=== PATIENT | female | born 1945 | race Caucasian/White ===

== ENCOUNTER 2016-06-07 11:01 | Inpatient (IN) | payer MEDICARE, MEDICAID ==
--- NOTE | 2016-06-07 11:14 | EDM.PDOC ---
<Brionna Sal - Last Filed: 06/07/16 12:10> ED HISTORY OF PRESENT ILLNESS - General Chief Complaint: Respiratory Problem Stated Complaint: FROM CLINIC: COUGH, FEVER, SORE THROAT, SHORTNESS OF BREATH Time Seen by Provider: 06/07/16 11:10 - History of Present Illness INITIAL COMMENTS - FREE TEXT/NARRATIVE: Patient presents to the ER from the clinic after seeing Dr. Waite. She states she has had a cough for about a week, producing white/yellow mucous. She states she has felt fatigued, tired, body aches for the past 3 days. She states she is a former smoker. Denies chest pain, N/V/D. She states she does not have a thermometer at home and is unaware if she has had a fever. - Related Data Allergies/ADRs: Allergies Allergy/AdvReac Type Severity Reaction Status Date / Time codeine Allergy Headache Verified 06/07/16 11:25 Penicillins Allergy Other Verified 08/20/14 14:44 Home Meds: Home Meds Alendronate [Fosamax] 70 mg PO Q7D@0600 08/20/14 [History] Furosemide [Furosemide] 20 mg PO DAILY 08/20/14 [History] Metoprolol Tartrate 25 mg PO DAILY 08/20/14 [History] Sertraline HCl 25 mg PO DAILY 08/20/14 [History] Simvastatin [Simvastatin] 20 mg PO DAILY 08/20/14 [History] Albuterol [Proventil HFA] 108 gm INH BID 06/07/16 [History] Aspirin [Halfprin] 81 mg PO BRK 06/07/16 [History] Magnesium 200 mg PO TID 06/07/16 [History] Pantoprazole [Protonix] 40 mg PO DAILY 06/07/16 [History] atorvaSTATin [Lipitor] 20 mg PO DAILY 06/07/16 [History] ED ROS GENERAL - Review of Systems Review Of Systems: ROS reveals no pertinent complaints other than HPI. ED EXAM, GENERAL - Physical Exam Exam: See Below Exam Limited By: No limitations General Appearance: alert, WD/WN, no apparent distress Eye Exam: bilateral eye: normal inspection Ears: normal external exam, normal canal, hearing grossly normal, normal TMs Ear Exam: bilateral ear: auricle normal, canal normal, TM normal Nose: normal inspection, normal mucosa, no blood Throat/Mouth: Normal inspection, Normal lips, Normal teeth, Normal gums, Normal oropharynx, Normal voice, No airway compromise Head: atraumatic, normocephalic Neck: normal inspection, supple, non-tender, full range of motion Respiratory/Chest: no respiratory distress, lungs clear, normal breath sounds, no accessory muscle use, chest non-tender, decreased breath sounds Cardiovascular: normal peripheral pulses, regular rate, rhythm, no gallop, no murmur, no rub Peripheral Pulses: 2+: radial (L), radial (R) GI/Abdominal: normal bowel sounds, soft, non tender, no organomegaly, no distention, no abnormal bruit, no mass (Female) Exam: Deferred Rectal (Female) Exam: Deferred Back Exam: normal inspection, full range of motion, NT Extremities: normal inspection, normal range of motion, non-tender, normal capillary refill, no pedal edema Neurological: alert, oriented, CN II-XII intact, normal cognition, normal gait, normal reflexes, no motor/sensory deficits Psychiatric: normal affect, normal mood Skin Exam: Warm, Dry, Intact, Normal color, No rash Lymphatic: no adenopathy Course - Vital Signs Last Recorded V/S: Last Vital Signs Temp 36.6 C 06/07/16 11:17 Pulse 78 06/07/16 11:17 Resp 18 06/07/16 11:17 BP 98/56 L 06/07/16 11:17 Pulse Ox 87 L 06/07/16 11:17 - Orders/Labs/Meds Orders: Active Orders 24 hr Category Date Time Status Overnight Pulse Oximetry [RC] Click To Edit Care 06/07/16 11:15 Active Peripheral IV Care [RC] . DIRECTED Care 06/07/16 11:15 Active RT Aerosol Therapy [RC] ASDIRECTED Care 06/07/16 11:15 Active CULTURE BLOOD [BC] Stat Lab 06/07/16 11:30 Received CULTURE BLOOD [BC] Stat Lab 06/07/16 11:35 Received CULTURE STREP A CONFIRMATION [] Stat Lab 06/07/16 11:25 Results STREP SCRN A RAPID W CULT CONF [] Stat Lab 06/07/16 11:25 Results UA W/MICROSCOPIC [URIN] Stat Lab 06/07/16 11:14 Uncollected Sodium Chloride 0.9% [Saline Flush] Med 06/07/16 11:14 Active 10 ml FLUSH ASDIRECTED PRN Blood Culture x2 Reflex Set [OM.PC] Stat Ot 06/07/16 11:14 Ordered Peripheral IV Insertion Adult [OM.PC] Stat Ot 06/07/16 11:14 Ordered Pulse Oximetry Continuous Monitoring [OM.PC] Routine Ot 06/07/16 11:14 Ordered RT Supplemental Oxygen Titration [RESPCARE] Stat Ot 06/07/16 11:14 Active Medication Orders Sodium Chloride (Saline Flush) 10 ml FLUSH ASDIRECTED PRN PRN Reason: Keep Vein Open Last Admin: 06/07/16 11:45 Dose: 10 ml Labs: Laboratory Tests 06/07/16 06/07/16 06/07/16 Range/Units 11:30 11:30 11:30 WBC 5.8 (5.0-10.0) 10^3/uL RBC 5.04 (4.2-5.4) 10^6/uL Hgb 14.2 (12.0-16.0) g/dL Hct 45.2 (37.0-47.0) % MCV 89.7 (80-100) fL MCH 28.2 (27.0-34.0) pg MCHC 31.4 L (33.0-35.0) g/dL Plt Count 174 (150-450) 10^3/uL Neut % (Auto) 59.4 (42.2-75.2) % Lymph % (Auto) 29.8 (20.5-50.1) % [place] % (Auto) 9.6 H (2-8) % Eos % (Auto) 0.9 L (1.0-3.0) % Baso % (Auto) 0.3 (0.0-1.0) % Sodium 138 (135-145) mmol/L Potassium 4.1 (3.6-5.0) mmol/L Chloride 99 L (101-111) mmol/L Carbon Dioxide 29.0 (21.0-31.0) mmol/L Anion Gap 14.1 BUN 21 H (7-18) mg/dL Creatinine 0.9 (0.6-1.3) mg/dL Est Cr Clr Drug Dosing 43.89 mL/min Estimated GFR (MDRD) > 60 BUN/Creatinine Ratio 23.33 Glucose 129 H (74-105) mg/dL Lactic Acid 1.1 (0.5-2.2) mmol/L Calcium 7.9 L (8.4-10.2) mg/dl Total Bilirubin 0.7 (0.2-1.0) mg/dL AST 37 (10-42) IU/L ALT 24 (10-60) IU/L Alkaline Phosphatase 82 (42-121) IU/L Total Protein 7.4 (6.7-8.2) g/dl Albumin 4.0 (3.2-5.5) g/dl Globulin 3.4 Albumin/Globulin Ratio 1.18 Rapid Influenza A & B: NEGATIVE Rapid Strep: NEGATIVE Meds: Medications Generic Name Dose Route Start Last Admin Trade Name Freq PRN Reason Stop Dose Admin Sodium Chloride 10 ml 06/07/16 11:14 06/07/16 11:45 Saline Flush FLUSH 10 ml ASDIRECTED PRN Administration Keep Vein Open Discontinued Medications Generic Name Dose Route Start Last Admin Trade Name Freq PRN Reason Stop Dose Admin Albuterol/Ipratropium 3 ml 06/07/16 11:15 06/07/16 11:43 Duoneb 3.0-0.5 Mg/3 Ml NEB 06/07/16 11:16 3 ml ONETIME ONE Administration Methylprednisolone Sodium Succinate 125 mg 06/07/16 11:15 06/07/16 11:49 Solu-Medrol IVPUSH 06/07/16 11:16 125 mg ONETIME ONE Administration Departure - Departure Disposition: Admitted As Inpatient 66 Clinical Impression: Acute exacerbation of chronic obstructive pulmonary disease (COPD), Hypoxia Forms: ED Department Discharge - My Orders Last 24 Hours: My Active Orders 06/07/16 11:14 UA W/MICROSCOPIC [URIN] Stat Sodium Chloride 0.9% [Saline Flush] 10 ml FLUSH ASDIRECTED PRN Blood Culture x2 Reflex Set [OM.PC] Stat Peripheral IV Insertion Adult [OM.PC] Stat Pulse Oximetry Continuous Monitoring [OM.PC] Routine RT Supplemental Oxygen Titration [RESPCARE] Stat 06/07/16 11:15 Overnight Pulse Oximetry [RC] Click To Edit Peripheral IV Care [RC] . DIRECTED RT Aerosol Therapy [RC] ASDIRECTED 06/07/16 11:25 CULTURE STREP A CONFIRMATION [RM] Stat STREP SCRN A RAPID W CULT CONF [RM] Stat 06/07/16 11:30 CULTURE BLOOD [BC] Stat 06/07/16 11:35 CULTURE BLOOD [BC] Stat - Assessment/Plan Last 24 Hours: My Active Orders 06/07/16 11:14 UA W/MICROSCOPIC [URIN] Stat Sodium Chloride 0.9% [Saline Flush] 10 ml FLUSH ASDIRECTED PRN Blood Culture x2 Reflex Set [OM.PC] Stat Peripheral IV Insertion Adult [OM.PC] Stat Pulse Oximetry Continuous Monitoring [OM.PC] Routine RT Supplemental Oxygen Titration [RESPCARE] Stat 06/07/16 11:15 Overnight Pulse Oximetry [RC] Click To Edit Peripheral IV Care [RC] . DIRECTED RT Aerosol Therapy [RC] ASDIRECTED 06/07/16 11:25 CULTURE STREP A CONFIRMATION [RM] Stat STREP SCRN A RAPID W CULT CONF [RM] Stat 06/07/16 11:30 CULTURE BLOOD [BC] Stat 06/07/16 11:35 CULTURE BLOOD [BC] Stat <Luis Manuel Reyes - Last Filed: 06/07/16 12:38> ED HISTORY OF PRESENT ILLNESS - General Source of Information: Reports: Patient, Old records, Provider (Dr. Waite), RN, RN notes reviewed History Limitations: Reports: No limitations - History of Present Illness Timing/Duration: Reports: Constant, Getting worse Location, General: Reports: chest, other (throat) Quality: Reports: Ache, Burning Improves with: Reports: None Worsens with: Reports: None Context, General: Denies: Activity, Exercise, Lifting, Sick contact, Trauma Associated Symptoms (General): Reports: no other symptoms Treatments TEST DRIVER: Reports: Breathing treatments, Oxygen Past Medical History Cardiovascular History: Reports: High cholesterol, Hypertension Respiratory History: Reports: Asthma, COPD, SOB Musculoskeletal History: Reports: Osteoporosis Other Neuro History: states she has brain anurysm Psychiatric History: Reports: Addiction (alcohol), Depression Social & Family History - Family History Family Medical History: Noncontributory - Tobacco Use Smoking Status *Q: Current Every Day Smoker Tobacco Use Within Last Twelve Months: Cigarettes Years of Tobacco use: 50 - Alcohol Use Days Per Week of Alcohol Use: 5 Number of Drinks Per Day: 4 Total Drinks Per Week: 20 - Recreational Drug Use Recreational Drug Use: No - Living Situation & Occupation Living situation: Reports: single, alone Occupation: retired ED ROS GENERAL - Review of Systems Review Of Systems: ROS reveals no pertinent complaints other than HPI. ED EXAM, GENERAL - Physical Exam Exam: See Below Exam Limited By: No limitations General Appearance: alert, no apparent distress Course - Vital Signs Last Recorded V/S: Last Vital Signs Temp 36.6 C 06/07/16 11:17 Pulse 78 06/07/16 11:17 Resp 18 06/07/16 11:17 BP 98/56 L 06/07/16 11:17 Pulse Ox 87 L 06/07/16 11:17 - Orders/Labs/Meds Orders: Active Orders 24 hr Category Date Time Status Overnight Pulse Oximetry [RC] Click To Edit Care 06/07/16 11:15 Active Peripheral IV Care [RC] . DIRECTED Care 06/07/16 11:15 Active RT Aerosol Therapy [RC] ASDIRECTED Care 06/07/16 11:15 Active CULTURE BLOOD [BC] Stat Lab 06/07/16 11:30 Received CULTURE BLOOD [BC] Stat Lab 06/07/16 11:35 Received CULTURE STREP A CONFIRMATION [RM] Stat Lab 06/07/16 11:25 Results STREP SCRN A RAPID W CULT CONF [RM] Stat Lab 06/07/16 11:25 Results UA W/MICROSCOPIC [URIN] Stat Lab 06/07/16 11:14 Uncollected Sodium Chloride 0.9% [Saline Flush] Med 06/07/16 11:14 Active 10 ml FLUSH ASDIRECTED PRN Blood Culture x2 Reflex Set [OM.PC] Stat Oth 06/07/16 11:14 Ordered Peripheral IV Insertion Adult [OM.PC] Stat Oth 06/07/16 11:14 Ordered Pulse Oximetry Continuous Monitoring [OM.PC] Routine Oth 06/07/16 11:14 Ordered RT Supplemental Oxygen Titration [RESPCARE] Stat Oth 06/07/16 11:14 Active Medication Orders Sodium Chloride (Saline Flush) 10 ml FLUSH ASDIRECTED PRN PRN Reason: Keep Vein Open Last Admin: 06/07/16 11:45 Dose: 10 ml Labs: Laboratory Tests 06/07/16 06/07/16 06/07/16 Range/Units 11:30 11:30 11:30 WBC 5.8 (5.0-10.0) 10^3/uL RBC 5.04 (4.2-5.4) 10^6/uL Hgb 14.2 (12.0-16.0) g/dL Hct 45.2 (37.0-47.0) % MCV 89.7 (80-100) fL MCH 28.2 (27.0-34.0) pg MCHC 31.4 L (33.0-35.0) g/dL Plt Count 174 (150-450) 10^3/uL Neut % (Auto) 59.4 (42.2-75.2) % Lymph % (Auto) 29.8 (20.5-50.1) % [place] % (Auto) 9.6 H (2-8) % Eos % (Auto) 0.9 L (1.0-3.0) % Baso % (Auto) 0.3 (0.0-1.0) % Sodium 138 (135-145) mmol/L Potassium 4.1 (3.6-5.0) mmol/L Chloride 99 L (101-111) mmol/L Carbon Dioxide 29.0 (21.0-31.0) mmol/L Anion Gap 14.1 BUN 21 H (7-18) mg/dL Creatinine 0.9 (0.6-1.3) mg/dL Est Cr Clr Drug Dosing 43.89 mL/min Estimated GFR (MDRD) > 60 BUN/Creatinine Ratio 23.33 Glucose 129 H (74-105) mg/dL Lactic Acid 1.1 (0.5-2.2) mmol/L Calcium 7.9 L (8.4-10.2) mg/dl Total Bilirubin 0.7 (0.2-1.0) mg/dL AST 37 (10-42) IU/L ALT 24 (10-60) IU/L Alkaline Phosphatase 82 (42-121) IU/L Total Protein 7.4 (6.7-8.2) g/dl Albumin 4.0 (3.2-5.5) g/dl Globulin 3.4 Albumin/Globulin Ratio 1.18 Meds: Medications Generic Name Dose Route Start Last Admin Trade Name Freq PRN Reason Stop Dose Admin Sodium Chloride 10 ml 06/07/16 11:14 06/07/16 11:45 Saline Flush FLUSH 10 ml ASDIRECTED PRN Administration Keep Vein Open Discontinued Medications Generic Name Dose Route Start Last Admin Trade Name Freq PRN Reason Stop Dose Admin Albuterol/Ipratropium 3 ml 06/07/16 11:15 06/07/16 11:43 Duoneb 3.0-0.5 Mg/3 Ml NEB 06/07/16 11:16 3 ml ONETIME ONE Administration Methylprednisolone Sodium Succinate 125 mg 06/07/16 11:15 06/07/16 11:49 Solu-Medrol IVPUSH 06/07/16 11:16 125 mg ONETIME ONE Administration - Radiology Interpretation Free Text/Narrative:: CXR: Chronic bronchitis, no lobar infiltrates or CHF per Rad. report. CT Results Date: 06/07/16 - Re-Assessments/Exams Free Text/Narrative Re-Assessment/Exam: 06/07/16 12:31 FOR THIS ENCOUNTER THE PATIENT WAS SEEN IN CONJUNCTION WITH [facility] STUDENT BRIONNA SAL. ALL PATIENT CARE AND/OR PROCEDURE(S), DIAGNOSTIC ORDERS, MEDICATION(S) AND TREATMENT ORDERS, DISPOSITION ORDERS/PLANNING, AND DISCHARGE/FOLLOW UP INSTRUCTIONS WERE UNDER MY DIRECT SUPERVISION. gbd Departure - Departure Time of Disposition: 12:33 (admit to Dr. Parrish) Condition: serious - My Orders Last 24 Hours: My Active Orders 06/07/16 11:14 UA W/MICROSCOPIC [URIN] Stat Sodium Chloride 0.9% [Saline Flush] 10 ml FLUSH ASDIRECTED PRN Blood Culture x2 Reflex Set [OM.PC] Stat Peripheral IV Insertion Adult [OM.PC] Stat Pulse Oximetry Continuous Monitoring [OM.PC] Routine RT Supplemental Oxygen Titration [RESPCARE] Stat 06/07/16 11:15 Overnight Pulse Oximetry [RC] Click To Edit Peripheral IV Care [RC] . DIRECTED RT Aerosol Therapy [RC] ASDIRECTED 06/07/16 11:25 CULTURE STREP A CONFIRMATION [RM] Stat STREP SCRN A RAPID W CULT CONF [RM] Stat 06/07/16 11:30 CULTURE BLOOD [BC] Stat 06/07/16 11:35 CULTURE BLOOD [BC] Stat - Assessment/Plan Last 24 Hours: My Active Orders 06/07/16 11:14 UA W/MICROSCOPIC [URIN] Stat Sodium Chloride 0.9% [Saline Flush] 10 ml FLUSH ASDIRECTED PRN Blood Culture x2 Reflex Set [OM.PC] Stat Peripheral IV Insertion Adult [OM.PC] Stat Pulse Oximetry Continuous Monitoring [OM.PC] Routine RT Supplemental Oxygen Titration [RESPCARE] Stat 06/07/16 11:15 Overnight Pulse Oximetry [RC] Click To Edit Peripheral IV Care [RC] . DIRECTED RT Aerosol Therapy [RC] ASDIRECTED 06/07/16 11:25 CULTURE STREP A CONFIRMATION [RM] Stat STREP SCRN A RAPID W CULT CONF [RM] Stat 06/07/16 11:30 CULTURE BLOOD [BC] Stat 06/07/16 11:35 CULTURE BLOOD [BC] Stat
[2016-06-07] MEDS ORDERED: methylPREDNISolone Sodium Succinate 125 MG/2 ML SDV IVPUSH ONE (11:15)
[2016-06-07] MEDS ORDERED: Albuterol/Ipratropium 3.0-0.5 MG/3 ML Neb Soln NEB ONE (11:15)
[2016-06-07] MEDS: Sodium Chloride 0.9% 10 ML Syringe FLUSH PRN ×2 (11:45→21:17)
[2016-06-07 12:02] LABS: CHLORIDE,CL 99 mmol/L (101-111); SODIUM,NA 138 mmol/L (135-145)
--- NOTE | 2016-06-07 12:10 | CR ---
Clinical history: 70-year-old female dyspnea and cough Interpretation: Hypertrophic marginal spondylosis dorsal spine. Course accentuation perihilar lung markings and old pleural pericardial scarring right base unchange d since 12 February 2012 exam. Normal cardiac silhouette without alveolar edema or dependent effusion and no new lung mass, hilar l ymphadenopathy or focal lobar pneumonia. CONCLUSION: Chronic bronchitis. No lobar pneumonia or signs of heart failure.
[2016-06-07] MEDS ORDERED: Ondansetron 4 MG Tab.DIS PO PRN (15:14)
[2016-06-07] MEDS ORDERED: Zolpidem 5 MG Tab PO PRN (15:14)
[2016-06-07] MEDS ORDERED: Magnesium Hydroxide 400 MG/5 ML Susp 30 ML Cup PO PRN (15:14)
[2016-06-07] MEDS ORDERED: Acetaminophen 325 MG Tab PO PRN (15:14)
[2016-06-07] MEDS ORDERED: Docusate Sodium 100 MG Cap PO PRN (15:14)
[2016-06-07] MEDS ORDERED: Aspirin 81 MG Tab.EC PO SCH (15:30)
[2016-06-07] MEDS: Levofloxacin/Dextrose 5%-Water 500 MG in Premix Bag 1 BAG IV SCH (15:51)
--- NOTE | 2016-06-07 16:00 | HP ---
CHIEF COMPLAINT: Increasing shortness of breath. HISTORY OF PRESENTING ILLNESS: Ms. Clint Toledo is a 70-year-old female with a medical history significant for hypertension, hyperlipidemia, chronic obstructive pulmonary airway disease, glucose intolerance, history of alcoholic cirrhosis in the past, history of tobacco use in the past but quit smoking many years back, presented to the clinic today with complaints of increasing shortness of breath and so was sent to the emergency room. While in the emergency room, the patient was noted to have possible bronchitis and possible COPD exacerbation, needing admission to the hospital. The patient says that the shortness of breath has been going on for the last one week, which has been progressively getting worse. She grades the shortness of breath as 5 to 6/10 in intensity, which got aggravated on exertion, ambulation, relieved with rest, associated with chest pain which is mild in nature, 2 to 3/10 in intensity, sharp in nature, aggravated on coughing and deep breathing, relieved with rest. The patient denied any fevers or chills for the last few days, but complains of having cough with sputum for the last few days which is greenish-yellow in color. Denies any headaches. Denies any sick contacts. Denies any recent travel. The patient denied any history of chest pains on exertion. No history of dyspnea on exertion. No history of orthopnea or paroxysmal nocturnal dyspnea. The patient denied any history of hematemesis, hematochezia, or melanotic stools. Normal bowel and bladder habits otherwise. REVIEW OF SYSTEMS: A complete review of system including skin, ear, nose, and throat, cardiovascular system, respiratory system, gastrointestinal system, genitourinary system, hematology, oncology, neurology, allergy, immunology, constitutional were all evaluated. PAST MEDICAL HISTORY: Significant for: 1. Hypertension. 2. Hyperlipidemia. 3. History of alcoholic liver disease in the past. 4. Cerebral aneurysm. 5. Compression fracture involving the lumbar spine. 6. Chronic obstructive pulmonary disease. 7. Glucose intolerance. 8. Hepatoma. 9. Herpes zoster. 10.Osteoporosis. 11.History of TIA in the past. 12.History of tobacco use and alcohol use in the past. PAST SURGICAL HISTORY: Significant for hernia repair. FAMILY HISTORY: Significant for stroke in her mother and osteoporosis in her mother. Type 2 diabetes mellitus in her son. ALLERGIES: Significant for codeine and penicillin. The patient says that her sister was allergic to penicillin, not her, and she does not want to take any chances with penicillin but she is truly allergic to codeine. SOCIAL HISTORY: The patient claims that she had quit smoking and drinking. PHYSICAL EXAMINATION: Vital Signs: Temperature of 97.7, pulse of 72, blood pressure 112/56, respiratory rate of 20, saturating at 94%. General Appearance: The patient is well oriented to time, place, and person. Follows commands spontaneously. Cardiovascular: S1, S2 heard with normal intensity. No gallops. Respiratory: Clear to auscultation bilaterally except for mild crepitations at the bases. Abdomen: Soft. Bowel sounds positive. Nontender. No rigidity. Extremities: No edema in bilateral lower extremities. Neurology: No gross focal neurological deficits. MEDICATIONS: Reviewed. The patient takes: 1. Lasix 20 mg daily. 2. Toprol-XL 25 mg daily. 3. Zoloft 25 mg daily. 4. Protonix 40 mg daily. 5. Lipitor 20 mg daily. 6. Fosamax 70 mg daily. 7. Magnesium 200 mg daily. 8. Aspirin 81 mg daily. 9. Albuterol inhalation as needed. LABORATORY DATA: WBC 5.8, hemoglobin 14.2, hematocrit 45.2, platelet count 174. Sodium 138, potassium 4.1, chloride 99, bicarb 29, BUN 21, creatinine 0.9, glucose 129, lactic acid 1.1, calcium 7.9. AST 37, ALT 24, alkaline phosphatase 82. Negative for influenzas. ASSESSMENT: 1. Acute chronic obstructive pulmonary disease exacerbation. 2. Acute bronchitis. 3. Hypertension. 4. Hyperlipidemia. PLAN: 1. Acute COPD exacerbation. The patient was complaining of increasing shortness of breath and was noted to be in COPD exacerbation while in the emergency room. She got some nebulizers after which her symptoms improved. The patient will be started on IV methylprednisone, nebulizers, and IV antibiotics and we will closely follow. 2. Acute bronchitis. The patient is complaining of cough with sputum which is greenish-yellow in color but does not have any leukocytosis. We will follow the chest x-ray report. We will empirically start her on Levaquin. We will obtain sputum for cultures and blood cultures. Titrate the antibiotics once we have the culture reports available. 3. Hypertension. The patient's blood pressure seems to be well controlled. She is noted to be on Toprol-XL, continue the same. 4. Hyperlipidemia. The patient is currently on Lipitor 20 mg once a day, continue the same. 5. Possible gastroesophageal reflux disease. The patient is currently on Protonix 40 mg, continue the same. 6. DVT prophylaxis indicated. We will have her on Lovenox for DVT prophylaxis. 7. Code status. Discussed in detail regarding the code status. The patient wants to be full code, but does not want to live long on life support. 8. Discussed with the patient and family members at bedside. Discussed with Dr. Reyes, ER physician, regarding the plan of care. Reviewed the labs and medications. Reviewed the old charts from Primary Care office. [facility] /[id number]
[2016-06-07] MEDS: Budesonide 0.5 MG/2 ML Neb Susp NEB SCH (18:10)
[2016-06-07] MEDS ORDERED: Non-Formulary Medication 1 Each (Magnesium [Magnesium] 400 MG) PO SCH (21:00)
[2016-06-07] MEDS ORDERED: Metoprolol Succinate 25 MG Tab.ER PO SCH (21:00)
[2016-06-07] MEDS: methylPREDNISolone Sodium Succinate 40 MG/1 ML SDV IVPUSH SCH (21:17)
[2016-06-07] MEDS: Aspirin 81 MG Tab.EC PO SCH (21:21)
[2016-06-07] MEDS: atorvaSTATin 20 MG Tab PO SCH (21:21)
[2016-06-07] MEDS: Albuterol/Ipratropium 3.0-0.5 MG/3 ML Neb Soln NEB SCH (22:34)
[2016-06-08] MEDS: methylPREDNISolone Sodium Succinate 40 MG/1 ML SDV IVPUSH SCH ×2 (04:10→16:01)
[2016-06-08] MEDS: Sodium Chloride 0.9% 10 ML Syringe FLUSH PRN ×2 (04:10→16:03)
[2016-06-08] MEDS: Pantoprazole 40 MG Tab.CR PO SCH (05:50)
[2016-06-08 06:42] LABS: CHLORIDE,CL 98 mmol/L (101-111); SODIUM,NA 135 mmol/L (135-145)
[2016-06-08] MEDS: Albuterol/Ipratropium 3.0-0.5 MG/3 ML Neb Soln NEB SCH ×3 (07:47→22:00)
[2016-06-08] MEDS: Budesonide 0.5 MG/2 ML Neb Susp NEB SCH ×2 (07:47→18:08)
[2016-06-08] MEDS: Aspirin 81 MG Tab.EC PO SCH (07:49)
[2016-06-08] MEDS: Enoxaparin 40 MG/0.4 ML Syringe SUBCUT SCH (08:06)
[2016-06-08] MEDS: Sertraline 50 MG Tab PO SCH (08:07)
[2016-06-08] MEDS ORDERED: Furosemide 20 MG Tab PO SCH (09:00)
[2016-06-08] MEDS ORDERED: Sodium Chloride 0.9% 1,000 ML IV SCH (11:15)
--- NOTE | 2016-06-08 13:25 | PN ---
DATE: 06/08/2016 SUBJECTIVE: Mrs. Paris Jaramillo is a 70-year-old female with medical history significant for hypertension, hyperlipidemia, chronic obstructive pulmonary disease, glucose intolerance, was admitted to the hospital with increasing shortness of breath and was noted to have acute COPD exacerbation, and acute bronchitis, needing admission to the hospital. For the past 24 hours, the patient complains increasing weakness, tiredness, and anxious. The patient was continued on IV antibiotic, nebulizers, and steroids. The patient denies any chest pain. Complains of mild shortness of breath and cough. Denies any abdominal pain. No nausea. No vomiting. No diarrhea. REVIEW OF SYSTEMS: Cardiovascular, respiratory, gastrointestinal, neurology, constitutional were all evaluated. PHYSICAL EXAMINATION: Vital Signs: Temperature of 98.3, pulse of 82, blood pressure of 97/44, respiratory rate of 20, saturating at 92% on 2 L of oxygen. General Appearance: The patient is well oriented to time, place, and person. Follows commands spontaneously. Cardiovascular system: S1 and S2 heard with normal intensity. No gallops. Respiratory system: Clear to auscultation bilaterally except for mild crepitations at the bases. No wheeze. Abdomen: Soft. Bowel sounds positive. Nontender. No rigidity. Extremities: No edema in bilateral lower extremities. Neurology: No gross focal neurological deficits. MEDICATIONS: Include: 1. Tylenol 650 mg every 4 hours as needed for pain and fever. 2. DuoNeb nebulizer 3 mL q.8h hourly. 3. Lipitor 20 mg at bedtime. 4. Pulmicort 0.5 mg nebulizer twice a day. 5. Docusate sodium 100 mg twice a day as needed. 6. Lovenox 40 mg subcutaneous daily. 7. Levaquin 500 mg daily. 8. Methylprednisolone 40 mg IV q.12 hours hourly. 9. Toprol-XL 12.5 mg at bedtime. 10.Zofran 4 mg every 4 hours as needed for nausea. 11.Protonix 40 mg daily. 12.Zoloft 25 mg daily. 13.Ambien 5 mg at bedtime. LABORATORY DATA: Labs reviewed. WBC 2.9, hemoglobin 13.5, hematocrit 41.4, and platelet count 153. Sodium 135, potassium 4.3, chloride 98, bicarb 29, BUN 22, creatinine 0.9, glucose 271, calcium 7.9, magnesium 2.6. ASSESSMENT: 1. Acute chronic obstructive pulmonary disease exacerbation. 2. Acute bronchitis. 3. Hypertension. 4. Hyperlipidemia. PLAN: 1. Acute chronic obstructive pulmonary disease exacerbation. The patient was admitted with increasing shortness of breath and was noted to be in acute chronic obstructive pulmonary disease exacerbation. She is currently on nebulizer treatment and IV methylprednisolone. We will gradually taper down the methylprednisolone. We will continue with the nebulizers and IV antibiotics. 2. Acute bronchitis. The patient was complaining of greenish yellow phlegm and is noted to have acute bronchitis. The patient is started on IV antibiotic with Levaquin. Continue the same. 3. Hypertension. The patient noted to be hypotensive, so we will hold the Lasix for now. Decrease metoprolol to 12.5 mg daily and have her on IV fluids at 75 mL/h for the next 10 hours and then closely follow. Avoid any hypotensive episodes. 4. Gastric esophageal reflux disease. We will start on Protonix. 5. Deep vein thrombosis prophylaxis. Continue with heparin for deep vein thrombosis prophylaxis. 6. Hypocalcemia. We will order for an ionized calcium level and replace it as needed. [facility] /[id number]
[2016-06-08] MEDS: Levofloxacin/Dextrose 5%-Water 500 MG in Premix Bag 1 BAG IV SCH (16:08)
[2016-06-08] MEDS: atorvaSTATin 20 MG Tab PO SCH (21:47)
[2016-06-08] MEDS: Metoprolol Succinate 25 MG Tab.ER PO SCH (21:49)
[2016-06-09] MEDS: methylPREDNISolone Sodium Succinate 40 MG/1 ML SDV IVPUSH SCH (05:18)
[2016-06-09] MEDS: Pantoprazole 40 MG Tab.CR PO SCH (06:31)
[2016-06-09] MEDS: Budesonide 0.5 MG/2 ML Neb Susp NEB SCH ×2 (06:31→17:15)
[2016-06-09] MEDS: Albuterol/Ipratropium 3.0-0.5 MG/3 ML Neb Soln NEB SCH ×4 (06:31→22:08)
[2016-06-09 06:55] LABS: CHLORIDE,CL 101 mmol/L (101-111); SODIUM,NA 137 mmol/L (135-145)
[2016-06-09] MEDS: Aspirin 81 MG Tab.EC PO SCH (08:37)
[2016-06-09] MEDS: Sertraline 50 MG Tab PO SCH (08:38)
[2016-06-09] MEDS: Sodium Chloride 0.9% 10 ML Syringe FLUSH PRN ×3 (08:39→17:28)
[2016-06-09] MEDS: Enoxaparin 40 MG/0.4 ML Syringe SUBCUT SCH (08:39)
[2016-06-09] MEDS: Calcium Carbonate/Vitamin D3 1250 MG-200 Unit Tab PO SCH (11:41)
--- NOTE | 2016-06-09 12:16 | PN ---
DATE: 06/09/2016 HISTORY OF PRESENT ILLNESS: Mrs. Paris Jaramillo is a 70-year-old female with medical history significant for hypertension, hyperlipidemia, chronic obstructive pulmonary disease, glucose intolerance, admitted with increasing shortness of breath, noted to be in acute COPD exacerbation and acute bronchitis. For the past 24 hours, the patient complains of mild weakness, aggravated on exertion, relieved with rest. No shortness of breath. No abdominal pain. No chest pains. No nausea, vomiting, or diarrhea. REVIEW OF SYSTEMS: Cardiovascular, respiratory, gastrointestinal, neurology, constitutional were all evaluated. PHYSICAL EXAMINATION: Vital Signs: Temperature 98, blood pressure 109/56, respiratory rate of 20, pulse of 73, saturating at 94% on 2 L of oxygen. General Appearance: The patient is well oriented to time, place, and person. Follows commands spontaneously. Cardiovascular: S1, S2 heard with normal intensity. No gallops. Respiratory: Clear to auscultation bilaterally. No wheeze. No crepitations. Abdomen: Soft. Bowel sounds positive. Nontender. No rigidity. Extremities: No edema in bilateral lower extremities. Neurology: No gross focal neurological deficits. MEDICATIONS: Reviewed. 1. Tylenol 650 mg every four hours as needed. 2. DuoNeb 3 mL nebulizer q.8 hourly. 3. Aspirin 81 mg daily. 4. Lipitor 20 mg daily. 5. Pulmicort 0.5 mg nebulizer twice a day. 6. Lovenox 40 mg daily. 7. Levaquin 500 mg daily. 8. Milk of magnesium as needed. 9. Toprol-XL 12.5 mg at bedtime. 10.Zofran 4 mg as needed for nausea. 11.Protonix 40 mg daily. 12.Prednisone 20 mg daily. LABORATORY DATA: Reviewed. Sodium 137, potassium 4.7, chloride 101, bicarb 27, BUN 21, creatinine 0.8, glucose 198, calcium 7.8, magnesium 2.6. ASSESSMENT: 1. Acute chronic obstructive pulmonary disease exacerbation. 2. Acute bronchitis. 3. Hypertension. 4. Acute on chronic respiratory failure. 5. Hyperlipidemia. PLAN: 1. Acute COPD exacerbation. The patient was started on IV antibiotic, steroids, and nebulizer. We will discontinue the IV methylprednisone. We will switch her to oral prednisone. We will closely follow. Her wheezing has much improved. 2. Acute bronchitis. The patient was started on IV Levaquin. So far, her cultures remain negative. Follow the sputum culture report. 3. Acute on chronic hypoxic respiratory failure. The patient is still on nasal cannula oxygen. We will try to titrate down the oxygen. The patient has home oxygen. Closely follow. 4. Hypertension. The patient's blood pressure seems to be in acceptable range. She was noted to be hypotensive. We decreased her Toprol-XL to 12.5 mg. We held the Lasix. We will closely follow the patient. Try to avoid any hypotensive episode. 5. Gastroesophageal reflux disease. The patient is currently on Protonix, continue the same. 6. DVT prophylaxis. Continue with Lovenox. 7. Hypocalcemia. We ordered for ionized calcium, we will replace it with oral calcium chloride at this time. 8. Possible discharge in a.m. if she remains hemodynamically stable. 9. The patient is encouraged to ambulate. 10.We will continue with incentive spirometer and flutter valve for the patient. [facility] /[id number]
[2016-06-09] MEDS: Levofloxacin/Dextrose 5%-Water 500 MG in Premix Bag 1 BAG IV SCH (15:57)
[2016-06-09] MEDS: atorvaSTATin 20 MG Tab PO SCH (21:27)
[2016-06-09] MEDS: Metoprolol Succinate 25 MG Tab.ER PO SCH (21:28)
[2016-06-10] MEDS: Pantoprazole 40 MG Tab.CR PO SCH (05:59)
[2016-06-10] MEDS: Budesonide 0.5 MG/2 ML Neb Susp NEB SCH (07:20)
[2016-06-10] MEDS: Albuterol/Ipratropium 3.0-0.5 MG/3 ML Neb Soln NEB SCH (07:20)
[2016-06-10] MEDS ORDERED: predniSONE 20 MG Tab PO SCH (08:00)
[2016-06-10] MEDS: Calcium Carbonate/Vitamin D3 1250 MG-200 Unit Tab PO SCH (08:32)
[2016-06-10] MEDS: Aspirin 81 MG Tab.EC PO SCH (08:32)
[2016-06-10] MEDS: Sertraline 50 MG Tab PO SCH (08:33)
[2016-06-10] MEDS: Enoxaparin 40 MG/0.4 ML Syringe SUBCUT SCH (08:34)
[2016-06-10] MEDS: Sodium Chloride 0.9% 10 ML Syringe FLUSH PRN (08:34)
[2016-06-10 11:19] VITALS: BP 99/49
--- NOTE | 2016-06-10 13:29 | DISCH ---
ADMITTING DIAGNOSES: 1. Acute exacerbation of chronic obstructive pulmonary disease. 2. Acute bronchitis. DISCHARGE DIAGNOSIS: 1. Acute chronic obstructive pulmonary disease exacerbation, resolved. 2. Acute bronchitis, resolved. 3. Acute on chronic Hypoxic Respiratory failure. HISTORY OF PRESENTING ILLNESS: Mrs. Paris Jaramillo is a 70-year-old female with medical history significant for hypertension, hyperlipidemia, chronic obstructive pulmonary airway disease, glucose intolerance, and alcoholic liver cirrhosis in the past, presented to the hospital with complaints of increasing shortness of breath and was noted to be in acute COPD exacerbation and acute bronchitis. The patient was admitted and was started on IV methylprednisone, and also nebulizer treatment. She was started on IV antibiotics for her acute bronchitis. The patient responded well to the treatment but she continued to be hypoxic. The patient had a walking desat study done at the time of her discharge. The patient was saturating down to 82% on room air, requiring nasal cannula oxygen at rest. She is requiring 2 L of oxygen at rest, and also on ambulation, so home oxygen therapy was consulted and made arrangements for continuation of her oxygen. The patient usually takes oxygen on exertion prior to coming to the hospital but now she has recommended to be on oxygen at all the time. The patient was prescribed inhaler treatments with Combivent and Pulmicort inhaler along with Spiriva inhaler. The patient was also prescribed tapering dose of steroids and also oral antibiotics. The patient was explained about changes in medications. She remained hemodynamically stable on this admission. She was discharged home in stable condition. PHYSICAL EXAMINATION: Vital Signs: On the day of discharge vitals; temperature of 97.6, pulse of 72, respiratory rate of 20, blood pressure of 99/49, saturating at 93% on 2 L of oxygen. General Appearance: The patient is well oriented to time, place, and person. Follows commands spontaneously. Cardiovascular: S1, S2 heard with normal intensity. No gallops. Respiratory: Clear to auscultation bilaterally. No wheeze. No crepitations. Abdomen: Soft. Bowel sounds positive. Nontender. No rigidity. Extremities: No edema in bilateral lower extremity. Neurology: No gross focal neurological deficits. DISCHARGE MEDICATIONS: Include: 1. Albuterol 1 inhalation twice a day. 2. Fosamax 70 mg daily. 3. Aspirin 81 mg daily. 4. Pulmicort inhalation 180 mcg twice a day. 5. Calcium carbonate with vitamin D 1 tablet daily. 6. Docusate sodium 100 mg twice a day as needed for constipation. 7. Lasix 20 mg daily. 8. Combivent inhalation twice a day. 9. Levaquin 500 mg daily for the next 5 days. 10.Magnesium 400 mg twice a day. 11.Magnesium hydroxide. 12.Milk of magnesia 30 mL every 12 hours as needed for constipation. 13.Toprol-XL 12.5 mg at bedtime. 14.Protonix 40 mg daily. 15.Prednisone tapered dose with 10 and 5 mg. 16.Sertraline 25 mg daily. 17.Spiriva 18 mcg inhalation daily. 18.Lipitor 20 mg daily. 19.Toprol-XL 25 mg at bedtime. CONDITION ON ADMISSION: Poor. CONDITION ON DISCHARGE: Stable. ACTIVITY: As tolerated. DIET: Cardiac healthy diet. FOLLOWUP: With primary care physician in the next 1 week of time. I spent over 35 minutes of time in evaluating and treating this patient and discharge process. [facility] /[id number] MTDD
== END 2016-06-10 14:55 | disposition home or self-care (01) | DRG 190 ==
LOC: DL.ED 11:01 → UNDOADMIN 12:58 → DL.MS 12:58 → UNDODISIN 06-10 14:55
PROVIDERS: ADMIT Internal Medicine; ATTEND Internal Medicine
DX: J44.0 Chronic obstructive pulmonary disease with (acute) lower respiratory infection (principal); J96.21 Acute and chronic respiratory failure with hypoxia; J20.9 Acute bronchitis, unspecified; J44.1 Chronic obstructive pulmonary disease with (acute) exacerbation; I10 Essential (primary) hypertension; Z87.891 Personal history of nicotine dependence; K21.9 Gastro-esophageal reflux disease without esophagitis; Z99.81 Dependence on supplemental oxygen; E78.5 Hyperlipidemia, unspecified; M81.0 Age-related osteoporosis without current pathological fracture; F32.9 Major depressive disorder, single episode, unspecified; Z86.73 Personal history of transient ischemic attack (TIA), and cerebral infarction without residual deficits; E83.51 Hypocalcemia; E74.39 Other disorders of intestinal carbohydrate absorption; F10.21 Alcohol dependence, in remission; Z87.898 Personal history of other specified conditions; Z79.82 Long term (current) use of aspirin; Z79.52 Long term (current) use of systemic steroids; Z88.5 Allergy status to narcotic agent; Z88.0 Allergy status to penicillin
CPT/HCPCS: 36415; 71020; 80053; 83605; 85025; 87040 ×2; 87081; 87430; 87804 ×2; 94640; 96374; 99285; J2930; J7050; 80048; 81001; 82330; 83735; 85027; 87070; 87205; 99284; A9270-GY; J1650; J1956; J2920; J7030

== ENCOUNTER 2017-04-17 07:16 | Day surgery (SDC) | payer MEDICARE, MEDICAID ==
[2017-04-17] MEDS ORDERED: Midazolam 1 MG/ML 2 ML SDV IV ONE (07:17)
[2017-04-17] MEDS ORDERED: Sodium Chloride 0.9% 10 ML Syringe IV ONE (07:17)
[2017-04-17] MEDS ORDERED: Dexamethasone 4 MG/ML SDV IV ONE (07:17)
[2017-04-17] MEDS ORDERED: Sodium Chloride 0.9% 10 ML Syringe FLUSH PRN (07:30)
[2017-04-17] MEDS ORDERED: Ondansetron 4 MG/2 ML SDV IVPUSH PRN (07:30)
[2017-04-17] MEDS ORDERED: Povidone-Iodine 5% Sterile Ophth Soln 30 ML Bottle EYELF ONE ×2 (07:30→09:02)
[2017-04-17] MEDS ORDERED: Cataract Ophth Solution EYELF ONE (07:30)
[2017-04-17] MEDS ORDERED: Phenylephrine 10% Ophth Soln 5 ML Bot EYELF PRN (07:30)
[2017-04-17] MEDS ORDERED: Acetaminophen 325 MG Tab PO PRN (07:30)
[2017-04-17] MEDS ORDERED: Timolol Maleate 0.5% Ophth Soln 5 ML Bottle EYELF ONE (07:30)
[2017-04-17] MEDS ORDERED: Moxifloxacin 0.5% Ophth Soln 3 ML Bottle EYELF ONE (07:30)
[2017-04-17] MEDS ORDERED: Phenylephrine 10% Ophth Soln 5 ML Bot EYELF ONE (07:30)
[2017-04-17] MEDS ORDERED: Proparacaine 0.5% Ophth Soln 15 ML Bottle EYELF ONE (07:30)
[2017-04-17] MEDS ORDERED: Lidocaine 1% 30 ML SDV ONE (09:02)
[2017-04-17] MEDS ORDERED: Tetracaine HCl/PF 0.5% 4 ML Bottle EYELF ONE (09:02)
[2017-04-17] MEDS ORDERED: Diclofenac Sodium 0.1% Ophth Soln 5 ML Bottle EYELF ONE (09:03)
[2017-04-17] MEDS ORDERED: Vancomycin 500 MG SDV EYELF ONE (09:03)
[2017-04-17] MEDS ORDERED: Apraclonidine 0.5% Ophth Soln 5 ML Bot EYELF ONE (09:03)
[2017-04-17] MEDS ORDERED: Dexamethasone/Neomycin/Polymyxin B Ophth Oint 3.5 GM Tube EYELF ONE (09:03)
[2017-04-17] MEDS ORDERED: Balanced Salt Solution Ophth Irrig 500 ML Bottle IOCULAR ONE (09:03)
[2017-04-17] MEDS ORDERED: Chondroitin Sulfate/Hyaluronate Sodium Ophth Inj 0.75 ML Syringe EYELF ONE (09:04)
--- NOTE | 2017-04-17 09:41 | OR ---
DATE: PREOPERATIVE DIAGNOSIS: Cataract, left eye. POSTOPERATIVE DIAGNOSIS: Cataract, left eye. PROCEDURE: Extracapsular cataract extraction with intraocular lens implant, left eye. ANESTHESIA: Topical/local MAC. COMPLICATIONS: None. INDICATION: Ms. Jaramillo was seen in the clinic. She has complained of a slow progressive decrease in vision, difficulty with bright lights and glare, difficulty seeing television. Clinical examination reveals visually significant mixed nuclear and cortical cataract. I explained options, I offered cataract surgery, and I explained risks including but not limited to, infection, retinal detachment, loss of vision, need for additional surgery, amongst others. We discussed implant options. She has requested a monofocal implant. She understands that she may require glasses for some activities following surgery. OPERATIVE DESCRIPTION: After informed consent was obtained and the risks, benefits, and alternatives were explained, the patient was brought to the operative suite and topical anesthesia was administered. The patient was then prepped and draped in the sterile fashion and attention was placed on the left eye. A sterile lid speculum was placed into the left eye to allow operative exposure. A full-thickness paracentesis was made in the temporal portion of the operative eye. Preservative-free lidocaine 0.1 mL was injected into the anterior chamber followed by viscoelastic. A full-thickness corneal incision was then made into the anterior chamber. A bent needle cystotome was used to create a small mary in the anterior capsule. The capsulorrhexis forceps was then used to create a 360-degree curvilinear capsulorrhexis. The nucleus was then removed using a phacoemulsification handpiece and the remaining cortical material was then removed with irrigation and aspiration handpiece. Following removal of the cortical material, the capsular bag was then inspected and noted to be free of any holes or tears. Viscoelastic was then injected into the capsular bag and the intraocular lens was inserted into the capsular bag. The viscoelastic material was then removed from both the anterior and posterior chambers and from behind the IOL. The lens and capsular bag were then reinspected. The IOL was well centered and the capsular bag intact. The wound and paracentesis sites were inspected and hydrated with balanced saline solution. Both were found to be self- sealing. The intraocular pressure was assessed digitally and found to be within normal range. A good red reflex was noted at the completion of the procedure. No complications occurred during the operation. At the completion of the procedure, Azucena Harrell, and Iopidine drops were placed into the operative eye. A sterile eye shield was placed over the operative eye and the patient was transported to the postoperative recovery area having tolerated the procedure well. Postoperative instructions were given along with a postoperative appointment. The patient was advised to call with any questions or concerns. No complications occurred. [facility] /[id number]
[2017-04-17 13:44] VITALS: BP 114/58
== END 2017-04-17 10:15 | disposition home or self-care (01) ==
LOC: DL.SDS 07:16
PROVIDERS: ATTEND Ophthalmology
DX: H25.12 Age-related nuclear cataract, left eye (principal); H25.012 Cortical age-related cataract, left eye; J44.9 Chronic obstructive pulmonary disease, unspecified; E11.9 Type 2 diabetes mellitus without complications; I10 Essential (primary) hypertension; E78.00 Pure hypercholesterolemia, unspecified; Z87.891 Personal history of nicotine dependence; Z79.82 Long term (current) use of aspirin; Z79.84 Long term (current) use of oral hypoglycemic drugs; Z79.899 Other long term (current) drug therapy
CPT/HCPCS: 66984; 82962; 93005; A9270; C1780; J1100; J2250; J3370; J7050; 00142; 93010

== ENCOUNTER 2017-04-24 07:45 | Day surgery (SDC) | payer MEDICARE, MEDICAID ==
[2017-04-24] MEDS ORDERED: Dexamethasone 4 MG/ML SDV IV ONE (07:46)
[2017-04-24] MEDS ORDERED: Sodium Chloride 0.9% 10 ML Syringe IV ONE (07:46)
[2017-04-24] MEDS ORDERED: Midazolam 1 MG/ML 2 ML SDV IV ONE (07:46)
[2017-04-24] MEDS ORDERED: Ondansetron 4 MG/2 ML SDV IVPUSH PRN (08:00)
[2017-04-24] MEDS ORDERED: Proparacaine 0.5% Ophth Soln 15 ML Bottle EYERT ONE (08:00)
[2017-04-24] MEDS ORDERED: Povidone-Iodine 5% Sterile Ophth Soln 30 ML Bottle EYERT ONE ×2 (08:00→10:13)
[2017-04-24] MEDS ORDERED: Moxifloxacin 0.5% Ophth Soln 3 ML Bottle EYERT ONE (08:00)
[2017-04-24] MEDS ORDERED: Sodium Chloride 0.9% 10 ML Syringe FLUSH PRN (08:00)
[2017-04-24] MEDS ORDERED: Phenylephrine 10% Ophth Soln 5 ML Bot EYERT ONE (08:00)
[2017-04-24] MEDS ORDERED: Timolol Maleate 0.5% Ophth Soln 5 ML Bottle EYERT ONE (08:00)
[2017-04-24] MEDS ORDERED: Cataract Ophth Solution EYERT ONE (08:00)
[2017-04-24] MEDS ORDERED: Acetaminophen 325 MG Tab PO PRN (08:00)
[2017-04-24] MEDS ORDERED: Phenylephrine 10% Ophth Soln 5 ML Bot EYERT PRN (08:00)
[2017-04-24] MEDS ORDERED: Lidocaine 1% 30 ML SDV ONE (10:13)
[2017-04-24] MEDS ORDERED: Tetracaine HCl/PF 0.5% 4 ML Bottle EYERT ONE (10:13)
[2017-04-24] MEDS ORDERED: Apraclonidine 0.5% Ophth Soln 5 ML Bot EYERT ONE (10:14)
[2017-04-24] MEDS ORDERED: Diclofenac Sodium 0.1% Ophth Soln 5 ML Bottle EYERT ONE (10:14)
[2017-04-24] MEDS ORDERED: Vancomycin 500 MG SDV EYERT ONE (10:15)
[2017-04-24] MEDS ORDERED: Dexamethasone/Neomycin/Polymyxin B Ophth Oint 3.5 GM Tube EYERT ONE (10:15)
[2017-04-24] MEDS ORDERED: Balanced Salt Solution Ophth Irrig 500 ML Bottle IOCULAR ONE (10:15)
[2017-04-24] MEDS ORDERED: Chondroitin Sulfate/Hyaluronate Sodium Ophth Inj 0.75 ML Syringe EYERT ONE (10:16)
--- NOTE | 2017-04-24 11:26 | OR ---
DATE: 04/24/2017 PREOPERATIVE DIAGNOSIS: Cataract, right eye. POSTOPERATIVE DIAGNOSIS: Cataract, right eye. PROCEDURE: Extracapsular cataract extraction with intraocular lens implant, right eye. ANESTHESIA: Topical/local MAC. COMPLICATIONS: None. INDICATION: Mrs. Jaramillo was seen in the clinic. She has had complaints of difficulty with TV, difficulty with bright lights and glare. Clinical examination revealed visually significant mixed nuclear and cortical cataract. I explained options; I offered cataract surgery; and I explained risks. She is symptomatic and requested surgery. We discussed implant options, and she requested a monofocal implant. She understands that she may need glasses following surgery for some activities. OPERATIVE DESCRIPTION: After informed consent was obtained and the risks, benefits, and alternatives were explained, the patient was brought to the operative suite and topical anesthesia was administered. The patient was then prepped and draped in the sterile fashion and attention was placed on the right eye. A sterile lid speculum was placed into the right eye to allow operative exposure. A full-thickness paracentesis was made in the temporal portion of the operative eye. Preservative-free lidocaine 0.1 mL was injected into the anterior chamber followed by viscoelastic. A full-thickness corneal incision was then made into the anterior chamber. A bent needle cystotome was used to create a small mary in the anterior capsule. The capsulorrhexis forceps was then used to create a 360-degree curvilinear capsulorrhexis. The nucleus was then removed using a phacoemulsification handpiece and the remaining cortical material was then removed with irrigation and aspiration handpiece. Following removal of the cortical material, the capsular bag was then inspected and noted to be free of any holes or tears. Viscoelastic was then injected into the capsular bag, and the intraocular lens was inserted into the capsular bag. The viscoelastic material was then removed from both the anterior and posterior chambers and from behind the IOL. The lens and capsular bag were then reinspected. The IOL was well centered and the capsular bag intact. The wound and paracentesis sites were inspected and hydrated with balanced saline solution. Both were found to be self-sealing. The intraocular pressure was assessed digitally and found to be within normal range. A good red reflex was noted at the completion of the procedure. No complications occurred during the operation. At the completion of the procedure, Maxitrol, Voltaren, and Iopidine drops were placed into the operative eye. A sterile eye shield was placed over the operative eye and the patient was transported to the postoperative recovery area having tolerated the procedure well. Postoperative instructions were given along with a postoperative appointment. The patient was advised to call with any questions or concerns. [facility] /[id number]
[2017-04-24 11:32] VITALS: BP 111/66
== END 2017-04-24 11:39 | disposition home or self-care (01) ==
LOC: DL.SDS 07:45
PROVIDERS: ATTEND Ophthalmology
DX: H25.011 Cortical age-related cataract, right eye (principal); H26.8 Other specified cataract; J44.9 Chronic obstructive pulmonary disease, unspecified; I10 Essential (primary) hypertension; E78.00 Pure hypercholesterolemia, unspecified; E11.9 Type 2 diabetes mellitus without complications; Z87.891 Personal history of nicotine dependence; Z79.84 Long term (current) use of oral hypoglycemic drugs; Z79.899 Other long term (current) drug therapy; Z88.0 Allergy status to penicillin; Z88.8 Allergy status to other drugs, medicaments and biological substances
CPT/HCPCS: 00142; 66984; 82962; A9270; C1780; J1100; J2250; J3370; J7050

== ENCOUNTER 2021-05-09 15:16 | Emergency (ER) | payer MEDICARE, MEDICAID ==
[2021-05-09 15:19] VITALS: BP 107/73; PULSE 82
== END 2021-05-09 16:17 | disposition home or self-care (01) ==
LOC: DL.ED 15:16
DX: S80.02XA Contusion of left knee, initial encounter (principal); M23.92 Unspecified internal derangement of left knee; E78.00 Pure hypercholesterolemia, unspecified; I10 Essential (primary) hypertension; J44.9 Chronic obstructive pulmonary disease, unspecified; E11.9 Type 2 diabetes mellitus without complications; Z87.891 Personal history of nicotine dependence; Z88.5 Allergy status to narcotic agent; Z88.0 Allergy status to penicillin; Z79.82 Long term (current) use of aspirin; Z79.84 Long term (current) use of oral hypoglycemic drugs; Z79.899 Other long term (current) drug therapy; W18.30XA Fall on same level, unspecified, initial encounter; Y92.512 Supermarket, store or market as the place of occurrence of the external cause
CPT/HCPCS: 73562-LT; 99283

== ENCOUNTER 2022-02-22 13:52 | Emergency (ER) | payer MEDICARE, MEDICAID ==
[2022-02-22] MEDS ORDERED: Sodium Chloride 0.9% 10 ML Syringe FLUSH PRN (14:25)
[2022-02-22 14:44] VITALS: BP 125/112; PULSE 94
[2022-02-22 15:15] LABS: ANION GAP 12.2 mEq/L (7-13)
[2022-02-22 15:17] LABS: RESPIRATORY SYNCYTIAL VIR NAA NEGATIVE (NEGATIVE)
[2022-02-22 15:19] LABS: CORONAVIRUS COVID-19 NAA POSITIVE (NEGATIVE)
== END 2022-02-22 16:17 | disposition home or self-care (01) ==
LOC: DL.ED 13:52
DX: U07.1 COVID-19 (principal); I10 Essential (primary) hypertension; E78.00 Pure hypercholesterolemia, unspecified; J44.9 Chronic obstructive pulmonary disease, unspecified; E11.9 Type 2 diabetes mellitus without complications; Z87.891 Personal history of nicotine dependence; Z88.5 Allergy status to narcotic agent; Z88.0 Allergy status to penicillin; Z79.82 Long term (current) use of aspirin; Z79.899 Other long term (current) drug therapy; Z79.84 Long term (current) use of oral hypoglycemic drugs
CPT/HCPCS: 0241U; 36415; 71045; 80053; 85025; 99283

== ENCOUNTER 2022-06-29 14:11 | Emergency (ER) | payer MEDICARE, MEDICAID ==
[2022-06-29 14:38] VITALS: BP 117/61; PULSE 70
[2022-06-29] MEDS ORDERED: Sodium Chloride 0.9% 10 ML Syringe FLUSH PRN ×2 (14:43→14:45)
[2022-06-29] MEDS ORDERED: Iopamidol 755 Mg/ML 100 ML Bottle IVPUSH ONE (15:12)
[2022-06-29 15:21] LABS: ANION GAP 10.4 mEq/L (7-13)
[2022-06-29 15:22] LABS: CORONAVIRUS COVID-19 NAA NEGATIVE (NEGATIVE); RESPIRATORY SYNCYTIAL VIR NAA NEGATIVE (NEGATIVE)
[2022-06-29] MEDS ORDERED: Furosemide 40 MG/4 ML VIAL IVPUSH ONE (16:25)
== END 2022-06-29 16:57 | disposition home or self-care (01) ==
LOC: DL.ED 14:11
DX: G44.89 Other headache syndrome (principal); E78.00 Pure hypercholesterolemia, unspecified; I10 Essential (primary) hypertension; J44.9 Chronic obstructive pulmonary disease, unspecified; E11.9 Type 2 diabetes mellitus without complications; Z88.5 Allergy status to narcotic agent; Z88.0 Allergy status to penicillin; Z79.82 Long term (current) use of aspirin; Z79.84 Long term (current) use of oral hypoglycemic drugs; Z79.899 Other long term (current) drug therapy; Z20.822 Contact with and (suspected) exposure to COVID-19
CPT/HCPCS: 0241U; 36415; 70450; 70496; 80053; 80307; 82947; 83735; 85025; 99284; Q9967

== ENCOUNTER 2023-01-07 09:16 | Emergency (ER) | payer MEDICARE, MEDICAID ==
[2023-01-07] MEDS ORDERED: Oxymetazoline 0.05% Nasal Spray 30 ML Bottle NAS ONE (09:39)
[2023-01-07] MEDS ORDERED: Bacitracin Oint 1 GM U/D Packet TOP ONE (09:39)
[2023-01-07 10:23] VITALS: BP 134/85; PULSE 78
== END 2023-01-07 10:36 | disposition home or self-care (01) ==
LOC: DL.ED 09:16
DX: R04.0 Epistaxis (principal); E11.9 Type 2 diabetes mellitus without complications; M19.90 Unspecified osteoarthritis, unspecified site; I10 Essential (primary) hypertension; J45.909 Unspecified asthma, uncomplicated; Z88.0 Allergy status to penicillin; Z88.5 Allergy status to narcotic agent; Z79.82 Long term (current) use of aspirin; Z79.84 Long term (current) use of oral hypoglycemic drugs; Z87.891 Personal history of nicotine dependence
CPT/HCPCS: 99282; 99283; A9270-GY

== ENCOUNTER 2023-04-11 15:01 | Observation (INO) | payer MEDICARE, MEDICAID ==
[2023-04-11 15:35] LABS: HEMATOCRIT 47.5 % (37.0-47.0); HEMOGLOBIN 15.1 g/dL (12.0-16.0); MEAN CORPUSCULAR HEMOGLOBIN 28.8 pg (27.0-34.0); MEAN CORPUSCULAR HGB CONC 31.8 g/dL (33.0-35.0); MEAN CORPUSCULAR VOLUME 90.5 fL (80-100); PLATELET COUNT,PLT 276 10^3/uL (150-450); RED BLOOD CELL COUNT 5.25 10^6/uL (4.2-5.4); WHITE BLOOD CELL COUNT,WBC 14.3 10^3/uL (5.0-10.0)
[2023-04-11 15:47] LABS: INR 1.1 (0.9-1.2); PROTHROMBIN TIME 10.8 SEC (9.0-12.0); PTT,PARTIAL THROMBOPLSTIN TIME 22.9 SEC (22.0-34.0)
[2023-04-11 15:48] LABS: EOSINOPHILS PERCENT MAN 9 % (1-3); LYMPHOCYTES PERCENT MAN 7 % (20-50); MONOCYTES PERCENT MAN 7 % (2-8); SEG NEUTROPHILS PERCENT MAN 77 % (42-75)
[2023-04-11 15:53] LABS: LACTIC ACID 1.4 mmol/L (0.4-2.0)
[2023-04-11 15:58] LABS: ALANINE AMINOTRANSFERASE,ALT 18 U/L (14-59); ALBUMIN 2.5 g/dL (3.4-5.0); ALKALINE PHOSPHATASE 98 U/L (46-116); ANION GAP 10.5 mEq/L (7-13); ASPARTATE AMNIOTRANSFERASE,AST 15 U/L (15-37); BILIRUBIN TOTAL 0.8 mg/dL (0.2-1.0); BLOOD UREA NITROGEN,BUN 17 mg/dL (7-18); BUN/CREATININE RATIO 19.3 (No establ ref range); CALCIUM 9.3 mg/dL (8.5-10.1); CARBON DIOXIDE,CO2 33 mmol/L (21-32); CHLORIDE,CL 99 mmol/L (98-107); CREATININE 0.88 mg/dL (0.55-1.02); EST CRCL DRUG DOSING (CG) 46.23 mL/min; GLUCOSE RANDOM 130 mg/dL (70-99); MAGNESIUM 2.1 mg/dL (1.8-2.4); POTASSIUM,K 3.5 mmol/L (3.5-5.1); PROTEIN TOTAL,TP 6.2 g/dL (6.4-8.2); SODIUM,NA 139 mmol/L (136-145); TSH ULTRASENSITIVE 0.43 uIU/mL (0.36-3.74)
[2023-04-11 16:03] LABS: A/G RATIO 0.68; ESTIMATED GFR 68 mL/min (>=60); ETHANOL BLOOD MEDICAL < 3 mg/dL (0)
[2023-04-11] MEDS ORDERED: Ondansetron 4 MG/2 ML SDV IVPUSH PRN (18:27)
[2023-04-11] MEDS ORDERED: Polyethylene Glycol 3350 Powder 17 GM Packet PO PRN (18:27)
[2023-04-11] MEDS ORDERED: Acetaminophen/oxyCODONE 325-5 MG Tab PO PRN (18:27)
[2023-04-11] MEDS ORDERED: Sodium Chloride 0.9% 10 ML Syringe FLUSH PRN (18:27)
[2023-04-11] MEDS ORDERED: Magnesium Hydroxide 400 MG/5 ML Susp 30 ML Cup PO PRN (18:27)
[2023-04-11] MEDS ORDERED: Naloxone 2 MG/2 ML Syringe IVPUSH PRN (18:27)
[2023-04-11] MEDS ORDERED: Zolpidem 5 MG Tab PO PRN (18:27)
[2023-04-11] MEDS ORDERED: Albuterol/Ipratropium 3.0-0.5 MG/3 ML Neb Soln NEB PRN (18:27)
[2023-04-11] MEDS ORDERED: MVI, Adult with Vitamin K 10 ML, Folic Acid 1 MG, Thiamine 100 MG in Lactated Ringers 1... IV ONE ×4 (18:52)
[2023-04-11] MEDS ORDERED: traMADol 50 MG Tab PO PRN (19:04)
[2023-04-11] MEDS ORDERED: Glucagon,Human Recombinant 1 MG Vial IM PRN (19:25)
[2023-04-11] MEDS ORDERED: 50% Dextrose in Water 50 ML Syringe IVPUSH PRN (19:25)
[2023-04-11] MEDS: HYDROmorphone 0.5 MG/0.5 ML Syringe IVPUSH PRN (20:00)
[2023-04-11] MEDS: traMADol 50 MG Tab PO PRN (20:00)
[2023-04-11] MEDS: Sodium Chloride 0.9% 10 ML Syringe FLUSH SCH (20:00)
[2023-04-12] MEDS: traMADol 50 MG Tab PO PRN (02:00)
[2023-04-12 05:49] LABS: HEMATOCRIT 45.9 % (37.0-47.0); HEMOGLOBIN 14.4 g/dL (12.0-16.0); MEAN CORPUSCULAR HEMOGLOBIN 28.8 pg (27.0-34.0); MEAN CORPUSCULAR HGB CONC 31.4 g/dL (33.0-35.0); MEAN CORPUSCULAR VOLUME 91.8 fL (80-100); PLATELET COUNT,PLT 241 10^3/uL (150-450); WHITE BLOOD CELL COUNT,WBC 12.6 10^3/uL (5.0-10.0)
[2023-04-12 06:27] LABS: ALBUMIN 2.3 g/dL (3.4-5.0); ANION GAP 9.7 mEq/L (7-13); BILIRUBIN TOTAL 0.7 mg/dL (0.2-1.0); BUN/CREATININE RATIO 23.7 (No establ ref range); CALCIUM 9.2 mg/dL (8.5-10.1); CREATININE 0.76 mg/dL (0.55-1.02); EST CRCL DRUG DOSING (CG) 46.78 mL/min; MAGNESIUM 2.1 mg/dL (1.8-2.4); POTASSIUM,K 3.7 mmol/L (3.5-5.1); PROTEIN TOTAL,TP 5.9 g/dL (6.4-8.2); T4 FREE 1.34 ng/dL (0.76-1.46)
[2023-04-12 06:29] LABS: A/G RATIO 0.64
[2023-04-12 06:33] LABS: BAND PERCENT MAN 2 %; EOSINOPHILS PERCENT MAN 14 % (1-3); LYMPHOCYTES PERCENT MAN 14 % (20-50); MONOCYTES PERCENT MAN 8 % (2-8); SEG NEUTROPHILS PERCENT MAN 62 % (42-75)
[2023-04-12] MEDS ORDERED: traMADol 50 MG Tab PO SCH (09:00)
[2023-04-12] MEDS: Insulin Lispro 100 Units/ML 3 ML Vial SUBCUT SCH ×2 (09:32→17:00)
[2023-04-12] MEDS: Sodium Chloride 0.9% 10 ML Syringe FLUSH SCH ×2 (09:34→22:42)
[2023-04-12] MEDS: Sennosides/Docusate Sodium 50-8.6 MG Tab PO PRN (10:21)
[2023-04-12] MEDS ORDERED: Bisacodyl 10 MG Supp RECTAL PRN (11:45)
[2023-04-12] MEDS: Magnesium Oxide 400 MG Tab PO SCH ×2 (14:26→20:12)
[2023-04-12] MEDS: traMADol 50 MG Tab PO SCH ×2 (14:26→17:46)
[2023-04-12] MEDS: HYDROmorphone 0.5 MG/0.5 ML Syringe IVPUSH PRN (15:23)
[2023-04-12] MEDS: Sodium Chloride 0.9% 1,000 ML IV SCH (16:32)
[2023-04-12] MEDS: Melatonin 3 MG Tab PO PRN (20:13)
[2023-04-12] MEDS: Multivitamin Tab PO SCH (20:13)
[2023-04-12] MEDS: atorvaSTATin 20 MG Tab PO SCH (20:13)
[2023-04-12] MEDS: Metoprolol Succinate 25 MG Tab.ER PO SCH (21:26)
[2023-04-13] MEDS: traMADol 50 MG Tab PO SCH ×4 (00:08→17:31)
[2023-04-13] MEDS: Pantoprazole 40 MG Tab.CR PO SCH (05:24)
[2023-04-13] MEDS: Sodium Chloride 0.9% 1,000 ML IV SCH (05:30)
[2023-04-13] MEDS: Insulin Lispro 100 Units/ML 3 ML Vial SUBCUT SCH ×2 (08:36→17:29)
[2023-04-13] MEDS: Sodium Chloride 0.9% 10 ML Syringe FLUSH SCH (08:37)
[2023-04-13] MEDS: Sennosides/Docusate Sodium 50-8.6 MG Tab PO PRN (08:38)
[2023-04-13] MEDS: Magnesium Oxide 400 MG Tab PO SCH ×3 (08:38→20:07)
[2023-04-13] MEDS: Aspirin 81 MG Tab.EC PO SCH ×2 (08:39→11:24)
[2023-04-13] MEDS: DULoxetine 30 MG Cap PO SCH (08:39)
[2023-04-13] MEDS: Metoprolol Succinate 25 MG Tab.ER PO SCH (20:06)
[2023-04-13] MEDS: atorvaSTATin 20 MG Tab PO SCH (20:07)
[2023-04-13] MEDS: Multivitamin Tab PO SCH (20:07)
[2023-04-14] MEDS: traMADol 50 MG Tab PO SCH ×5 (00:02→23:44)
[2023-04-14] MEDS: Sodium Chloride 0.9% 10 ML Syringe FLUSH SCH ×3 (00:03→20:22)
[2023-04-14] MEDS: Pantoprazole 40 MG Tab.CR PO SCH (05:53)
[2023-04-14 06:28] LABS: HEMATOCRIT 43.1 % (37.0-47.0); HEMOGLOBIN 13.1 g/dL (12.0-16.0); MEAN CORPUSCULAR HEMOGLOBIN 28.7 pg (27.0-34.0); MEAN CORPUSCULAR HGB CONC 30.4 g/dL (33.0-35.0); MEAN CORPUSCULAR VOLUME 94.3 fL (80-100); PLATELET COUNT,PLT 207 10^3/uL (150-450); RED BLOOD CELL COUNT 4.57 10^6/uL (4.2-5.4); WHITE BLOOD CELL COUNT,WBC 13.9 10^3/uL (5.0-10.0)
[2023-04-14 06:35] LABS: APPEARANCE,URINE CLEAR (CLEAR); BILIRUBIN,URINE NEGATIVE (NEGATIVE); COLOR,URINE YELLOW (YELLOW); GLUCOSE,URINE NEGATIVE (NEGATIVE); KETONES,URINE NEGATIVE (NEGATIVE); LEUKOCYTE ESTERASE,URINE NEGATIVE (NEGATIVE); NITRITE,URINE NEGATIVE (NEGATIVE); OCCULT BLOOD,URINE NEGATIVE (NEGATIVE); PROTEIN,URINE TRACE (NEGATIVE); UROBILINOGEN,URINE 0.2 mg/dL (0.2-1.0)
[2023-04-14 06:49] LABS: ALBUMIN 2.1 g/dL (3.4-5.0); ANION GAP 9.7 mEq/L (7-13); BILIRUBIN TOTAL 0.8 mg/dL (0.2-1.0); BUN/CREATININE RATIO 21.7 (No establ ref range); CALCIUM 8.7 mg/dL (8.5-10.1); CREATININE 0.69 mg/dL (0.55-1.02); EST CRCL DRUG DOSING (CG) 51.52 mL/min; MAGNESIUM 2.2 mg/dL (1.8-2.4); POTASSIUM,K 4.7 mmol/L (3.5-5.1); PROTEIN TOTAL,TP 5.6 g/dL (6.4-8.2)
[2023-04-14 06:55] LABS: BACTERIA,URINE FEW /HPF (0-FEW/HPF); EPITHELIAL CELLS,URINE FEW /HPF (NOT SEEN); RBC,URINE 0-5 /HPF (0-5); WBC,URINE NOT SEEN /HPF (0-5/HPF)
[2023-04-14 06:57] LABS: A/G RATIO 0.6
[2023-04-14 07:05] LABS: BAND PERCENT MAN 2 %; EOSINOPHILS PERCENT MAN 6 % (1-3); LYMPHOCYTES PERCENT MAN 10 % (20-50); MONOCYTES PERCENT MAN 3 % (2-8); SEG NEUTROPHILS PERCENT MAN 79 % (42-75)
[2023-04-14] MEDS: Magnesium Oxide 400 MG Tab PO SCH ×3 (09:01→20:22)
[2023-04-14] MEDS: DULoxetine 30 MG Cap PO SCH (09:01)
[2023-04-14] MEDS: Acetaminophen 325 MG Tab PO PRN ×2 (09:01→20:21)
[2023-04-14] MEDS: Aspirin 81 MG Tab.EC PO SCH (09:01)
[2023-04-14] MEDS: Insulin Lispro 100 Units/ML 3 ML Vial SUBCUT SCH ×2 (09:03→17:14)
[2023-04-14] MEDS ORDERED: Cholecalciferol (Vitamin D3) 25 MCG Tab PO ONE (12:00)
[2023-04-14] MEDS: Metoprolol Succinate 25 MG Tab.ER PO SCH (20:20)
[2023-04-14] MEDS: Multivitamin Tab PO SCH (20:22)
[2023-04-14] MEDS: atorvaSTATin 20 MG Tab PO SCH (20:22)
[2023-04-15] MEDS: Pantoprazole 40 MG Tab.CR PO SCH (05:38)
[2023-04-15] MEDS: traMADol 50 MG Tab PO SCH ×3 (05:38→18:05)
[2023-04-15] MEDS: Insulin Lispro 100 Units/ML 3 ML Vial SUBCUT SCH ×2 (08:36→17:55)
[2023-04-15] MEDS: Cholecalciferol (Vitamin D3) 25 MCG Tab PO SCH (09:28)
[2023-04-15] MEDS: Magnesium Oxide 400 MG Tab PO SCH ×3 (09:28→21:05)
[2023-04-15] MEDS: Aspirin 81 MG Tab.EC PO SCH (09:28)
[2023-04-15] MEDS: DULoxetine 30 MG Cap PO SCH (09:28)
[2023-04-15] MEDS: Sodium Chloride 0.9% 10 ML Syringe FLUSH SCH ×2 (09:29→21:07)
[2023-04-15] MEDS: atorvaSTATin 20 MG Tab PO SCH (21:03)
[2023-04-15] MEDS: Multivitamin Tab PO SCH (21:04)
[2023-04-15] MEDS: Metoprolol Succinate 25 MG Tab.ER PO SCH (21:05)
[2023-04-15] MEDS: Mirtazapine 15 MG Tab PO SCH (21:06)
[2023-04-15] MEDS: Melatonin 3 MG Tab PO PRN (21:07)
[2023-04-16] MEDS: traMADol 50 MG Tab PO SCH ×4 (00:14→19:29)
[2023-04-16] MEDS: Pantoprazole 40 MG Tab.CR PO SCH (06:10)
[2023-04-16] MEDS: Insulin Lispro 100 Units/ML 3 ML Vial SUBCUT SCH ×2 (08:18→17:29)
[2023-04-16] MEDS: Magnesium Oxide 400 MG Tab PO SCH ×3 (08:34→21:02)
[2023-04-16] MEDS: Aspirin 81 MG Tab.EC PO SCH (08:34)
[2023-04-16] MEDS: Cholecalciferol (Vitamin D3) 25 MCG Tab PO SCH (08:35)
[2023-04-16] MEDS: Sodium Chloride 0.9% 10 ML Syringe FLUSH SCH ×2 (08:35→21:06)
[2023-04-16] MEDS: DULoxetine 30 MG Cap PO SCH (08:35)
[2023-04-16] MEDS: atorvaSTATin 20 MG Tab PO SCH (21:02)
[2023-04-16] MEDS: Multivitamin Tab PO SCH (21:02)
[2023-04-16] MEDS: Metoprolol Succinate 25 MG Tab.ER PO SCH (21:03)
[2023-04-16] MEDS: Mirtazapine 15 MG Tab PO SCH (21:03)
[2023-04-17] MEDS: traMADol 50 MG Tab PO SCH ×2 (04:31→05:38)
[2023-04-17] MEDS: Pantoprazole 40 MG Tab.CR PO SCH (05:38)
[2023-04-17 08:02] VITALS: BP 118/61; PULSE 105
[2023-04-17] MEDS: Insulin Lispro 100 Units/ML 3 ML Vial SUBCUT SCH (09:01)
[2023-04-17] MEDS: DULoxetine 30 MG Cap PO SCH (09:02)
[2023-04-17] MEDS: Aspirin 81 MG Tab.EC PO SCH (09:02)
[2023-04-17] MEDS: Magnesium Oxide 400 MG Tab PO SCH (09:02)
[2023-04-17] MEDS: Cholecalciferol (Vitamin D3) 25 MCG Tab PO SCH (09:02)
[2023-04-17] MEDS: Sodium Chloride 0.9% 10 ML Syringe FLUSH SCH (09:03)
== END 2023-04-17 09:45 | disposition other institution (70) ==
LOC: DL.ED 15:01 → DL.MS 17:09 → DL.ED 17:40
PROVIDERS: ADMIT Internal Medicine; ATTEND Internal Medicine
DX: R53.83 Other fatigue (principal); I10 Essential (primary) hypertension; J44.9 Chronic obstructive pulmonary disease, unspecified; J45.909 Unspecified asthma, uncomplicated; F17.200 Nicotine dependence, unspecified, uncomplicated; E11.9 Type 2 diabetes mellitus without complications; K21.9 Gastro-esophageal reflux disease without esophagitis; E78.5 Hyperlipidemia, unspecified; Z88.5 Allergy status to narcotic agent; Z88.0 Allergy status to penicillin; Z79.899 Other long term (current) drug therapy
CPT/HCPCS: 36415; 71046; 80053; 80307; 81001; 82306; 82947; 83605; 83735; 84145; 84439; 84443; 85025; 85610; 85730; 94010; 94667; 96365; 96366; 96375; 96376; 97161-GP; 97165-GO; 99223; 99233; 99238; 99285; A9270-GY; G0378; J1170; J1815-GY; J3411; J3490; J7030; J7120; U0002